=== PATIENT | male | born 1945 | race Caucasian/White ===

== ENCOUNTER 2019-05-21 19:08 | Emergency (ER) | payer OTHER ==
[~2019-05-21] VITALS: Ht 162.6 cm; Wt 68.0 kg
[2019-05-21 19:19] VITALS: Ht 162.6 cm; Wt 68.0 kg
[2019-05-21 20:30] VITALS: BP 146/85
== END 2019-05-21 20:30 | disposition home or self-care (01) ==
LOC: ED 19:08
DX: K60.4 Rectal fistula (principal); I10 Essential (primary) hypertension; E11.9 Type 2 diabetes mellitus without complications; E78.00 Pure hypercholesterolemia, unspecified